=== PATIENT | male | born 1965 | race Caucasian/White ===

== ENCOUNTER 2016-12-03 20:45 | Emergency (ER) | payer OTHER ==
[~2016-12-03] VITALS: Ht 170.2 cm; Wt 80.6 kg
[2016-12-03] MEDS ORDERED: AMLO2.5T PO (21:26)
[2016-12-03] MEDS ORDERED: LISI2.5T PO (21:26)
[2016-12-03] MEDS ORDERED: ONDANSETRON 2MG/ML, 2ML ONE (21:28)
[2016-12-03] MEDS ORDERED: KETOROLAC 30 MG/1 ML ONE (21:28)
[2016-12-03] MEDS ORDERED: SODIUM CHLORIDE 0.9% 1,000ML IVBOLUS ONE (21:30)
[2016-12-03] MEDS ORDERED: KETOROLAC 30 MG/1 ML IVPush ONE (21:30)
[2016-12-03] MEDS ORDERED: ONDANSETRON 2MG/ML, 2ML IVPush ONE (21:30)
[2016-12-03] MEDS ORDERED: PLEASE ENTER ALLERGIES MC SCH ×2 (21:30)
[2016-12-03 21:41] LABS: ASPARTATE AMINO TRANSFERASE 51 U/L (15-37); BLOOD UREA NITROGEN 7 mg/dL (7-18)
[2016-12-03 21:45] LABS: IS PT STATUS REG ER OR PRE ER? YES
[2016-12-03 22:26] VITALS: BP 142/97
== END 2016-12-03 22:26 | disposition home or self-care (01) ==
LOC: ED 22:22
DX: R07.89 Other chest pain (principal); F10.239 Alcohol dependence with withdrawal, unspecified; F11.23 Opioid dependence with withdrawal; I10 Essential (primary) hypertension
CPT/HCPCS: 36415; 71010; 73110; 80053; 80307; 84484; 85025; 93005; 96361; 96374; 96375; 99285; J1885; J2405; J7030

== ENCOUNTER 2016-12-11 21:27 | Emergency (ER) | payer OTHER ==
[~2016-12-11] VITALS: Ht 170.2 cm; Wt 81.0 kg
[~2016-12-11 21:27] MED LIST: AMLO2.5T PO; LISI2.5T PO
[2016-12-11] MEDS ORDERED: LISI40TA PO (21:57)
[2016-12-11] MEDS ORDERED: ONDANSETRON 2MG/ML, 2ML IVPush ONE (22:00)
[2016-12-11] MEDS ORDERED: SODIUM CHLORIDE FLUSH 10ML SYR IVF ONE (22:00)
[2016-12-11] MEDS ORDERED: FAMOTIDINE 20 MG/2 ML IVPush ONE (22:00)
[2016-12-11] MEDS ORDERED: MAALOX/HYOSCYAMINE/LIDOCAINE 45 ML BTL PO ONE (22:00)
[2016-12-11] MEDS ORDERED: SODIUM CHLORIDE 0.9% 1,000ML IVBOLUS ONE (22:00)
[2016-12-11 22:10] LABS: HEMATOCRIT 47.9 % (39.2-51.8); WHITE BLOOD COUNT 7.1 x10^3/uL (3.4-10)
[2016-12-11] MEDS ORDERED: MAALOX/HYOSCYAMINE/LIDOCAINE 45 ML BTL ONE (22:17)
[2016-12-11] MEDS ORDERED: ONDANSETRON 2MG/ML, 2ML ONE (22:17)
[2016-12-11] MEDS ORDERED: FAMOTIDINE 20 MG/2 ML ONE (22:17)
[2016-12-11 22:22] LABS: ASPARTATE AMINO TRANSFERASE 52 U/L (15-37); BLOOD UREA NITROGEN 7 mg/dL (7-18)
[2016-12-11 22:28] LABS: IS PT STATUS REG ER OR PRE ER? YES
[2016-12-12 00:37] LABS: IS PT STATUS REG ER OR PRE ER? YES
[2016-12-12 01:13] VITALS: BP 139/103
== END 2016-12-12 01:41 | disposition home or self-care (01) ==
LOC: ED 23:59
DX: R07.89 Other chest pain (principal); K20.9 Esophagitis, unspecified; I10 Essential (primary) hypertension
CPT/HCPCS: 36415; 71020; 80053; 84484; 85025; 93005; 96361; 96374; 96375; 99285; J2405; J7030; S0028

== ENCOUNTER 2017-06-17 17:01 | Emergency (ER) | payer OTHER ==
[~2017-06-17] VITALS: Ht 170.2 cm; Wt 86.5 kg
[~2017-06-17 17:01] MED LIST changes: +LISI40TA PO
[2017-06-17 17:05] VITALS: BP 228/153
[2017-06-17 17:52] LABS: BASOPHILS # (AUTO) 0.03 x10^3/uL (0-0.1); BASOPHILS % (AUTO) 0 % (0-1); EOSINOPHILS # (AUTO) 0.14 x10^3/uL (0-0.4); EOSINOPHILS % (AUTO) 2 % (1-7); LYMPHOCYTES # (AUTO) 1.24 x10^3/uL (1-3.4); LYMPHOCYTES % (AUTO) 20 % (22-44); MD NO; MEAN CORPUSCULAR HEMOGLOBIN 33.2 pg (27.5-34.5); MEAN CORPUSCULAR HGB CONC 34.3 g/dL (33.2-36.2); MEAN CORPUSCULAR VOLUME 96.6 fL (81-97); MEAN PLATELET VOLUME 7.2 fL (7.4-10.4); MONOCYTES # (AUTO) 0.64 x10^3/uL (0.2-0.8); MONOCYTES % (AUTO) 10 % (2-9); NEUTROPHILS # (AUTO) 4.09 x10^3/uL (1.8-6.8); NEUTROPHILS % (AUTO) 67 % (42-75); PLATELET COUNT 246 x10^3/uL (130-400); RED BLOOD COUNT 5.11 x10^6/uL (4.38-5.82); RED CELL DISTRIBUTION WIDTH 14.1 % (9.4-14.8)
[2017-06-17 17:57] LABS: ALBUMIN 3.7 g/dL (3.4-5.0); ANION GAP 9 mmol/L (5-15); CALCIUM 8.4 mg/dL (8.5-10.1); CHLORIDE 111 mmol/L (98-107); CREATININE 0.92 mg/dL (0.7-1.3)
[2017-06-17] MEDS ORDERED: LISINOPRIL 20 MG TABLET PO ONE (18:00)
[2017-06-17] MEDS ORDERED: HYDROmorphone 1 MG/ML, 1ML IM ONE (18:00)
[2017-06-17] MEDS ORDERED: LISINOPRIL 20 MG TABLET ONE (18:20)
[2017-06-17] MEDS ORDERED: HYDROmorphone 2 MG/ML, 1ML ONE (18:21)
== END 2017-06-17 18:57 | disposition home or self-care (01) ==
LOC: ED 18:49
DX: S83.91XA Sprain of unspecified site of right knee, initial encounter (principal); I10 Essential (primary) hypertension; W19.XXXA Unspecified fall, initial encounter; Y93.89 Activity, other specified; Y92.89 Other specified places as the place of occurrence of the external cause; Y99.8 Other external cause status
CPT/HCPCS: 29505; 36415; 73564; 80048; 82040; 85025; 93005; 96372; 99285; J1170